=== PATIENT | female | born 2000 | race Hispanic/Latino ===

== ENCOUNTER → 2022-01-17 12:34 | Outpatient (CLI) | payer OTHER, SELFPAY ==
[2022-01-17 17:12] LABS: Influenza A - CEPHEID Flu A POSITIVE (NEGATIVE); Influenza B - CEPHEID Flu B NEGATIVE (NEGATIVE); Respiratory Syncytial Virus Negative (Negative)
[2022-01-17 17:23] LABS: COVID-19 CEPHEID 4-PLEX PCR Negative (Negative)
== END ==
PROVIDERS: Visit Provider Physician Assistant Medical
DX: R50.9 Fever, unspecified (principal)
CPT/HCPCS: 0241U